=== PATIENT | male | born 1945 | race Caucasian/White ===

== ENCOUNTER → 2016-08-23 | Outpatient (CLI) | payer MEDICARE, OTHER ==
[~2016-08-23] MED LIST: CELEXA10 MG PO; NEURONTIN 100100 MG PO
== END ==
LOC: CT 13:58
DX: R31.29 Other microscopic hematuria (principal); Z79.899 Other long term (current) drug therapy; N28.1 Cyst of kidney, acquired
CPT/HCPCS: 36415; 82565; 84520; J7050; Q9962

== ENCOUNTER 2017-02-06 11:16 | Emergency (ER) | payer MEDICARE ==
[2017-02-06 12:08] LABS: HEMOGLOBIN 15.2 gm/dl (14.0-17.5); RED BLOOD COUNT 4.84 M/UL (4.20-5.50); WHITE BLOOD COUNT 6.7 K/UL (4.5-11.0)
[2017-02-06 13:03] LABS: BUN/CREATININE RATIO 6 (0-10)
== END 2017-02-06 14:20 | disposition home or self-care (01) ==
LOC: ER1 11:16
PROVIDERS: Physician Assistant
DX: R55 Syncope and collapse (principal); R42 Dizziness and giddiness; R53.1 Weakness; H53.8 Other visual disturbances; R68.83 Chills (without fever); Z88.2 Allergy status to sulfonamides; Z88.5 Allergy status to narcotic agent
CPT/HCPCS: 36415; 71010; 80053; 82550; 82553; 83874; 84484; 85025; 93005; 99284

== ENCOUNTER → 2021-03-30 | Day surgery (SDC) | payer OTHER ==
[~2021-03-30] VITALS: Ht 175.3 cm; Wt 64.4 kg
[~2021-03-30] MED LIST changes: +ECOTRIN81 MG PO; +KLONOPIN TAB 00.5 MG PO; +PROTONIX40 MG PO; +TOPAMAX25 MG PO; +TYLENOL W/CODEIN1 E1 PO; +VENTOLIN HFA 66.7 GM INH; +ZANTAC150 MG PO
== END | disposition home or self-care (01) ==
LOC: OR 06:18
DX: K31.9 Disease of stomach and duodenum, unspecified (principal); K20.90 Esophagitis, unspecified without bleeding; K26.3 Acute duodenal ulcer without hemorrhage or perforation; K29.50 Unspecified chronic gastritis without bleeding; R63.4 Abnormal weight loss; Z68.20 Body mass index [BMI] 20.0-20.9, adult; Z88.2 Allergy status to sulfonamides; Z88.5 Allergy status to narcotic agent; Z20.822 Contact with and (suspected) exposure to COVID-19
CPT/HCPCS: 36415; 76705; 80076; 82150; 83690; J2704; J7040; U0002

== ENCOUNTER → 2021-04-11 | Outpatient (CLI) | payer OTHER | LOC: MRI 08:25 | DX: K83.1 Obstruction of bile duct (principal) | CPT/HCPCS: 74181 ==

== ENCOUNTER 2021-08-25 17:17 | Emergency (ER) | payer OTHER ==
[2021-08-25 19:32] LABS: HEMOGLOBIN 13.9 gm/dl (14.0-17.5); RED BLOOD COUNT 4.43 M/UL (4.20-5.50)
[2021-08-25 20:07] LABS: BUN/CREATININE RATIO 12 (0-10)
== END 2021-08-25 22:45 | disposition home or self-care (01) ==
LOC: ER1 17:17
PROVIDERS: Family Medicine
DX: E87.1 Hypo-osmolality and hyponatremia (principal); R07.89 Other chest pain; G47.10 Hypersomnia, unspecified; H91.90 Unspecified hearing loss, unspecified ear; I10 Essential (primary) hypertension; F41.9 Anxiety disorder, unspecified; Z88.2 Allergy status to sulfonamides; Z88.6 Allergy status to analgesic agent
CPT/HCPCS: 71045; 80053; 81001; 82550; 82553; 83735; 84439; 84443; 84484; 85025; 93005; 99285

== ENCOUNTER 2021-09-05 16:07 | Emergency (ER) | payer OTHER ==
[2021-09-05] MEDS ORDERED: CYCLOBENZAPRINE10 MG PO (20:16)
== END 2021-09-05 20:24 | disposition home or self-care (01) ==
LOC: ER1 16:07
DX: M54.50 Low back pain, unspecified (principal); Z88.5 Allergy status to narcotic agent; Z88.6 Allergy status to analgesic agent
CPT/HCPCS: 96372; 99283; J1100; J1885